=== PATIENT | female | born 1990 | race Caucasian/White ===

== ENCOUNTER 2017-09-25 23:39 | Emergency (ER) | payer OTHER ==
[~2017-09-25] VITALS: Ht 160 cm; Wt 87.9 kg
[2017-09-25 23:44] VITALS: TEMP 37; Ht 160 cm; Wt 87.9 kg
[2017-09-25] MEDS ORDERED: KETOROLAC TROMETHAMINE 30 MG/ML VIAL IV STA (23:55)
[2017-09-25] MEDS ORDERED: ONDANSETRON INJ 2 MG/ML 2 ML VIAL IV STA (23:55)
[2017-09-26 00:28] LABS: BASO % 0.2 %; BASO ABS # 0.02 K/uL (0-0.2); HEMATOCRIT 39.5 % (37-47); HEMOGLOBIN 13.6 g/dL (12.0-16.0); IG# 0.01 K/uL (0.00-0.02); LYMPH % 8.3 %; LYMPH ABS # 0.91 K/uL (1.2-3.4); MEAN CELL VOLUME 89.8 fL (80-100); MEAN CORPUSCULAR HEMOGLOBIN 30.9 pg (25-34); MEAN CORPUSCULAR HGB CONC 34.4 g/dl (32-36); MEAN PLATELET VOLUME 10.2 fL (7.4-10.4); MONO % 3.1 %; MONO ABS # 0.34 K/uL (0.11-0.59); NEUT % 88.3 %; NEUT ABS # 9.65 K/uL (1.4-6.5); PLATELET COUNT 249 K/uL (130-400); RED CELL DISTRIBUTION WIDTH CV 13.1 % (11.5-14.5); RED CELL DISTRIBUTION WIDTH SD 43.5 fL (36.4-46.3); WHITE BLOOD COUNT 10.93 K/uL (4.8-10.8)
[2017-09-26 00:44] LABS: ALBUMIN 3.3 gm/dl (3.4-5.0); ALT/SGPT 22 U/L (12-78); AST/SGOT 12 U/L (15-37); BLOOD UREA NITROGEN 7 mg/dl (7-18); CALCIUM 8.9 mg/dl (8.5-10.1); CARBON DIOXIDE 25 mmol/L (21-32); CREATININE 0.71 mg/dl (0.60-1.20); GLUCOSE 138 mg/dl (70-99); POTASSIUM 3.7 mmol/L (3.5-5.1); SODIUM 135 mmol/L (136-145)
[2017-09-26 00:47] LABS: ALKALINE PHOSPHATASE 70 U/L (45-117)
[2017-09-26] MEDS ORDERED: LISD20CA PO (01:18)
[2017-09-26] MEDS ORDERED: LISD30CA4 PO (01:19)
[2017-09-26] MEDS ORDERED: BCPILLS PO (01:20)
[2017-09-26] MEDS ORDERED: CEFTRIAXONE SOD INJ 1 GM ADDVIAL IV STA (01:26)
[2017-09-26] MEDS ORDERED: AZITHROMYCIN 250 MG TAB PO STA (03:12)
[2017-09-26] MEDS ORDERED: VALA1TAB2 PO (03:18)
[2017-09-26] MEDS ORDERED: CEFD300C2 PO (03:18)
[2017-09-26 03:38] VITALS: BP 133/81; PULSE 63; O2SAT 97
--- NOTE | 2017-09-26 07:52 | EMERGENCY ROOM VISIT NOTE ---
History First contact with patient: 23:51 Chief Complaint: FLANK PAIN Stated Complaint: LWR RT BACK PAIN,UTI,STREP History of Present Illness The patient is a 27 year old female who presents to the Emergency Room with complaints of right flank pain with dysuria for the past day who has had urinary symptoms for the past several days. Patient first went to urgent care and was told she had a urine infection. Patient was complaining of a vaginal rash and burning on urination for the past several days. She was placed on Macrobid. Symptoms worsened so she returned to urgent care and then was placed on Keflex for possible strep infection and UTI. She was also given steroids for her tonsils were possibly swollen. Patient states her main complaint is the vaginal pain with rash and dysuria for the past several days that is steadily getting worse now as developed right flank pain. She is recently tested for STI's and was negative. Patient denies chest pain, dyspnea, fever, chills, sore throat, abdominal pain, vaginal bleeding or discharge. No history of herpes in the past. Review of Systems See HPI for pertinent positives & negatives. A total of 10 systems reviewed and were otherwise negative. Past Medical/Surgical History None Social History Smoking Status: Never Smoker Smokeless Tobacco Use: No Drug Use: none Marital Status: in relationship Current/Historical Medications Scheduled Control Pills ( Control Pills), 1 TAB PO DAILY Cefdinir (Omnicef), 300 MG PO Q12H Lisdexamfetamine Dimesylate (Vyvanse), 20 MG PO NOON Lisdexamfetamine Dimesylate (Vyvanse), 30 MG PO QAM Valacyclovir Hcl (Valtrex), 1,000 MG PO TID Physical Exam Vital Signs Date Time Temp Pulse Resp B/P (MAP) Pulse Ox O2 Delivery O2 Flow Rate FiO2 09/26/17 03:38 63 15 133/81 97 09/26/17 00:57 76 15 128/94 97 Room Air 09/25/17 23:44 37.0 84 18 152/110 97 Room Air Physical Exam VITALS: Vitals are noted on the nurse's note and reviewed by myself. Vital signs stable. GENERAL: Pleasant female, in no acute distress, nondiaphoretic, well-developed well-nourished. SKIN: The skin was without rashes, erythema, edema, or bruising. There is no tenting of the skin. Capillary reflex less than 2 seconds. HEAD: Normocephalic atraumatic. EARS: External auditory canals clear, tympanic membranes pearly [place] without erythema or effusion bilaterally. EYES: Pupils equal round and reactive to light and accommodation. Conjunctivae without injection, sclerae without icterus. Extraocular movements intact. NOSE: Patent, turbinates without inflammation or discharge. No sinus tenderness. MOUTH: Mucous membranes moist. Tonsils are not enlarged. Pharynx without erythema or exudate. Uvula midline. Airway patent. Tongue does not deviate. NECK: Supple without nuchal rigidity. No lymphadenopathy. No thyromegaly. Cervical spine is nontender. No JVD. HEART: Regular rate and rhythm without murmurs gallops or rubs. LUNGS: Clear to auscultation bilaterally without wheezes, rales or rhonchi. No dullness to percussion. No retractions or accessory muscle use. ABDOMEN: Positive bowel sounds x 4. Normal tympanic percussion. Soft, nontender, without masses or organomegaly. Rosales sign negative. No guarding or rebound tenderness. Right CVA tenderness exam: Normal external female genitalia, vaginal area with multiple erythematous ulcers was concerning for herpes, yellow discharge in the vault, no CMT or adnexal tenderness. Cultures taken and sent. Bill Clerk present. MUSCULOSKELETAL: No muscle atrophy, erythema, or edema noted. NEURO: Patient was alert and oriented to person place and time. Normal sensation to light and sharp touch. No focal neurological deficits. Medical Decision & Procedures Laboratory Results 09/25/17 00:15 Red Blood Count 4.40, Mean Corpuscular Volume 89.8, Mean Corpuscular Hemoglobin 30.9, Mean Corpuscular Hemoglobin Concent 34.4, Mean Platelet Volume 10.2, Neutrophils (%) (Auto) 88.3, Lymphocytes (%) (Auto) 8.3, Monocytes (%) (Auto) 3.1, Eosinophils (%) (Auto) 0.0, Basophils (%) (Auto) 0.2, Neutrophils # (Auto) 9.65, Lymphocytes # (Auto) 0.91, Monocytes # (Auto) 0.34, Eosinophils # (Auto) 0.00, Basophils # (Auto) 0.02 09/25/17 00:15 Test 09/25/17 00:08 09/25/17 00:15 09/26/17 02:10 Urine Color YELLOW Urine Appearance CLOUDY (CLEAR) Urine pH 6.5 (4.5-7.5) Urine Specific [place] 1.008 (1.000-1.030) Urine Protein NEG (NEG) Urine Glucose (UA) NEG (NEG) Urine Ketones NEG (NEG) Urine Occult Blood TRACE (NEG) Urine Nitrite NEG (NEG) Urine Bilirubin NEG (NEG) Urine Urobilinogen NEG (NEG) Urine Leukocyte Esterase MODERATE (NEG) Urine WBC (Auto) 10-30 /hpf (0-5) Urine RBC (Auto) 10-30 /hpf (0-4) Urine Hyaline Casts (Auto) 0 /lpf (0-5) Urine Epithelial Cells (Auto) 10-20 /lpf (0-5) Urine Bacteria (Auto) NEG (NEG) Urine Crystals (NONE PRSENT) White Blood Count 10.93 K/uL (4.8-10.8) Red Blood Count 4.40 M/uL (4.2-5.4) Hemoglobin 13.6 g/dL (12.0-16.0) Hematocrit 39.5 % (37-47) Mean Corpuscular Volume 89.8 fL (80-100) Mean Corpuscular Hemoglobin 30.9 pg (25-34) Mean Corpuscular Hemoglobin Concent 34.4 g/dl (32-36) Platelet Count 249 K/uL (130-400) Mean Platelet Volume 10.2 fL (7.4-10.4) Neutrophils (%) (Auto) 88.3 % Lymphocytes (%) (Auto) 8.3 % Monocytes (%) (Auto) 3.1 % Eosinophils (%) (Auto) 0.0 % Basophils (%) (Auto) 0.2 % Neutrophils # (Auto) 9.65 K/uL (1.4-6.5) Lymphocytes # (Auto) 0.91 K/uL (1.2-3.4) Monocytes # (Auto) 0.34 K/uL (0.11-0.59) Eosinophils # (Auto) 0.00 K/uL (0-0.5) Basophils # (Auto) 0.02 K/uL (0-0.2) RDW Standard Deviation 43.5 fL (36.4-46.3) RDW Coefficient of Variation 13.1 % (11.5-14.5) Immature Granulocyte % (Auto) 0.1 % Immature Granulocyte # (Auto) 0.01 K/uL (0.00-0.02) Anion Gap 6.0 mmol/L (3-11) Est Creatinine Clear Calc Drug Dose 125.1 ml/min Estimated GFR () 135.3 Estimated GFR (Non- 116.7 BUN/Creatinine Ratio 9.5 (10-20) Calcium Level 8.9 mg/dl (8.5-10.1) Total Bilirubin 0.3 mg/dl (0.2-1) Direct Bilirubin < 0.1 mg/dl (0-0.2) Aspartate Amino Transf (AST/SGOT) 12 U/L (15-37) Alanine Aminotransferase (ALT/SGPT) 22 U/L (12-78) Alkaline Phosphatase 70 U/L (45-117) Total Protein 8.0 gm/dl (6.4-8.2) Albumin 3.3 gm/dl (3.4-5.0) Human Chorionic Gonadotropin, Qual NEG (NEG) Medications Administered Medications (Trade) Dose Ordered Sig/Susie Route Start Time Stop Time Status Last Admin Dose Admin Ketorolac Tromethamine (Toradol Inj) 30 mg NOW STAT IV 09/25/17 23:55 09/25/17 23:57 DC 09/26/17 00:50 30 MG Ondansetron HCl (Zofran Inj) 4 mg NOW STAT IV 09/25/17 23:55 09/25/17 23:57 DC 09/26/17 00:50 4 MG Ceftriaxone Sodium (Rocephin Inj) 1 gm NOW STAT IV 09/26/17 01:26 09/26/17 01:27 DC 09/26/17 01:57 1 GM Valacyclovir HCl (Valtrex Tab) 1,000 mg NOW ONCE PO 09/26/17 02:45 09/26/17 02:46 DC 09/26/17 02:49 1,000 MG Azithromycin (Zithromax Tab) 1,000 mg NOW STAT PO 09/26/17 03:12 09/26/17 03:15 DC 09/26/17 03:25 1,000 MG ED Course Prior records/ancillary studies reviewed. Triage Nursing notes reviewed. Additional history obtained from boyfriend The patient's history was concerning for flank pain with dysuria and vaginal pain. Differential diagnosis: Etiologies such as STI, appendicitis, PID, diverticulitis, pyelonephritis, UTI , pancreatitis, obstruction, mesenteric ischemia, aortic pathology, infections, inflammatory bowel disease, renal colic, as well as others were entertained. Physical examination findings: As above. ER treatment provided: Rocephin, Zithromax, Valtrex On reassessment the patient felt better. Diagnostics interpreted by me: The labs revealed GC chlamydia pending. Herpes swab pending, negative Trichomonas. Urine concerning for possible infection versus contamination sent culture Imaging studies: Renal cell negative for hydronephrosis per radiology Exam and history seem consistent with herpes genitalis and UTI versus pyelonephritis. Patient had mild hyperglycemia on laboratory testing. This could be related to steroid use. She is advised to see family care for further evaluation and workup for possible diabetes. She is advised to have her partner tested and no intercourse until she is reviewed the culture results and finished the medications and has no more lesions and to take Valtrex as directed. She is advised to take the antibiotics for possible pyelonephritis as she had some right CVA tenderness and urine was concerning for possible infection but could also be related to her herpes infection. Patient is afebrile and nontoxic. She is well-appearing. By the evaluation outlined above emergent etiologies such as appendicitis, diverticulitis, PUD, biliary pathology, UTI, pancreatitis, obstruction, mesenteric ischemia, aortic pathology, inflammatory bowel disease, renal colic , as well as others were deemed relatively unlikely. The pt informed about the findings as listed above. All questions were answered and pleased with the treatment. Return instructions were outlined and the patient was discharged in stable condition. Outpatient prescription management: Valtrex, Omnicef Referral: The patient was referred back to their primary care physician for follow-up in 2 to 3 days for a recheck of the current condition. 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 Your blood sugar was slightly elevated. Recheck this with family care. This can be high from prednisone or from infection or from diabetes. Habits your partner get checked for sexually transmitted infections. No intercourse until all lesions are cleared. Results will return in 3 days. You can call here for the results or follow-up with family care. Valtrex 1 g:: Take one pill twice daily for 10 days for your urine infection. All antibiotics can cause diarrhea. If this occurs and you feel worse or it does not resolve in 1-2 days follow up with your doctor or return to the Emergency Department as this could be signs of serious underlying problems. Any medication can cause an allergic reaction, stop the pills immediately and return to the ER for rash, hives, breathing difficulties, or swelling. Omnicef 300 mg: Take one pill twice daily for 7 days for your urine infection. All antibiotics can cause diarrhea. If this occurs and you feel worse or it does not resolve in 1-2 days follow up with your doctor or return to the Emergency Department as this could be signs of serious underlying problems. Any medication can cause an allergic reaction, stop the pills immediately and return to the ER for rash, hives, breathing difficulties, or swelling. Zofran 4 mg: Take one every six hours as needed for nausea. Avoid alcohol, operating machinery or dangerous equipment, working on ladders or roofs, DRIVING , or situations where being under the influence may be dangerous. Ibuprofen(Motrin, Advil) may be used for fever or pain. Use 600mg every six hours as needed. Take with food. Avoid using more than 2400mg in a 24 hour period. Do not use 2400mg per day for more than three consecutive days without physician direction. Prolonged inappropriate use can lead to stomach upset or ulcers. (AND/OR) Acetaminophen(Tylenol) may be used for fever or pain. Use 1000mg every six hours as needed. Avoid using more than 3000mg in a 24 hour period. Rest and drink plenty of fluids as tolerated. Slow sips of water or sports drinks are recommended instead of large amounts all at once. Continue current medications. Return to the ER immediately for worsening or persistent abdominal/back pain, vomiting, fevers, worsening of your condition, or as needed. Follow up with your primary physician within 2-3 days for a recheck of the current condition. Problem Qualifiers Primary Impression: UTI (urinary tract infection) Urinary tract infection type: acute cystitis Hematuria presence: with hematuria Qualified Codes: N30.01 - Acute cystitis with hematuria
--- NOTE | 2017-09-26 08:27 | DIAGNOSTIC IMAGING REPORT ---
ULTRASOUND KIDNEYS AND BLADDER CLINICAL HISTORY: Right flank pain. COMPARISON STUDY: No priors. TECHNIQUE: Real-time, grayscale, and color flow sonography of the kidneys and bladder is performed. Images are reviewed in the transverse and longitudinal planes. FINDINGS: Kidneys: The kidneys are normal in size and echotexture. The right kidney measures 10.4 x 3.9 x 4.3 cm and the left kidney measures 11.3 x 4.7 x 5.3 cm. There is no hydronephrosis. No shadowing renal calculi are identified. There is no sonographic evidence of contour deforming renal mass lesion. No perinephric fluid is identified. Bladder: The bladder is largely decompressed and grossly unremarkable. Bilateral ureteral jets were seen. IMPRESSION: 1. The kidneys are normal in size and without hydronephrosis. 2. The bladder was largely decompressed and grossly unremarkable. Electronically signed by: Sanket Page M.D. 09/26/2017 8:25 AM Dictated Date/Time: 09/26/2017 8:24 AM
--- NOTE | 2017-09-29 12:58 | Pharmacy Progress Note ---
ED Pharmacist Culture FollowUp Date of Service: Sep 29, 2017. Presented with R flank pain, dysuria and vaginal rash. No fever/chills, no vaginal bleeding or discharge. Provider's exam revealed: multiple ulcers concerning for herpes, + yellow discharge in vault, no CMT or adnexal tenderness Trich, gonorrhea and chlamydia negative. Ultimately dx with HSV of genitalia + UTI; discharged w/ Rx for Cefdinir and Valtrex Gardnerella vaginalis (few) growing in genital cx. However no clue cells noted on gram stain. No notation of foul smelling discharge. BV cannot be dx by genital cx alone. Reviewed gardnerella cx with Dr Coronado, no action required.
[2017-09-29 21:45] LABS: HERPES SIMPLEX VIRUS CULT ISOLATED (NOT ISOLATED)
== END 2017-09-26 03:39 | disposition home or self-care (01) ==
LOC: C.EDB 23:41
DX: A60.09 Herpesviral infection of other urogenital tract (principal); N30.01 Acute cystitis with hematuria; R73.9 Hyperglycemia, unspecified; Z79.3 Long term (current) use of hormonal contraceptives